=== PATIENT | male | born 1945 | race Caucasian/White ===

== ENCOUNTER 2017-06-23 20:53 | Emergency (ER) | payer MEDICARE, OTHER ==
[2017-06-23 21:24] LABS: #Basophils 0.1 thou/uL (0.0-0.2); #Eosinphils 0.4 thou/uL (0.0-0.7); #Lymphocytes 2.9 thou/uL (1.20-3.40); #Monocytes 0.8 thou/uL (0.11-0.59); #Neutrophils 6.5 thou/uL (1.40-6.50); %Basophils 1.1 % (0.0-1.0); %Eosinophils 3.6 % (0.0-10.0); %Lymphocytes 27.1 % (21.0-51.0); %Monocytes 7.2 % (0.0-10.0); Hematocrit 44.3 % (42.0-52.0); Mean Platelet Volume 8.4 fL (7.4-10.4); Red Blood Cell (RBC) Count 4.71 mill/uL (4.70-6.10); White Blood Cell (WBC) Count 10.6 thou/uL (4.8-10.8)
[2017-06-23 21:42] LABS: ALT (SGPT) 17 U/L (8-55); AST (SGOT) 18 U/L (5-34); Alkaline Phosphatase 78 U/L (40-150); Anion Gap 13 mmol/L (10-20); BUN (Urea Nitrogen) 24 mg/dL (8.4-25.7); Bilirubin, Total 0.9 mg/dL (0.2-1.2); CK (CPK) 56 U/L (30-200); Calc. Creatinine Clearance 0 mL/min (70-130); Calcium 9.3 mg/dL (7.8-10.44); Carbon Dioxide 26 mmol/L (23-31); Chloride 107 mmol/L (98-107); Estimated GFR-MDRD 84; Globulin 3.1 g/dL (2.4-3.5); Lipase 13 U/L (8-78); Protein, Total 7.2 g/dL (5.8-8.1); Troponin I Less than 0.010 ng/mL (< 0.028)
--- NOTE | 2017-06-23 22:05 | RAD ---
AP VIEW CHEST 06/23/17 HISTORY: Chest pain. AP view chest is obtained. Mild cardiomegaly and pulmonary vascular congestion is seen. No evidence o f effusions, pneumonia or pneumothorax seen. IMPRESSION: Pulmonary vascular congestion, otherwise unremarkable AP view chest. POS: [facility]
== END 2017-06-23 23:07 | disposition left against medical advice (07) ==
LOC: SCSER 20:53
DX: R00.0 Tachycardia, unspecified (principal); I48.91 Unspecified atrial fibrillation; Z79.899 Other long term (current) drug therapy
CPT/HCPCS: 71010; 80053; 82553; 83690; 83880; 84484; 85025; 93005

== ENCOUNTER 2019-05-05 16:35 | Outpatient (CLI) | payer MEDICARE, OTHER ==
--- NOTE | 2019-05-05 16:47 | RAD ---
Exam: Chest 2 views HISTORY:Asthma, bronchitis Comparison: 06/23/2017 FINDINGS: Lungs: Mild generalized interstitial prominence of each lung. Cardiac silhouette: Normal size There is vascular calcification. Pulmonary vessels: Normal Pleural Spaces: Clear Pneumothorax: None Osseous abnormalities: None of acuity. IMPRESSION: Mild interstitial opacities of the lungs, which may be on the basis of interstitial lung disease. Correlate clinically.
== END 2019-05-05 16:36 | disposition home or self-care (01) ==
LOC: BICRAD 16:35
PROVIDERS: ATTEND Dentist General Practice
DX: J45.909 Unspecified asthma, uncomplicated (principal); R91.8 Other nonspecific abnormal finding of lung field
CPT/HCPCS: 71046